=== PATIENT | male | born 1995 | race Two or more races ===

== ENCOUNTER 2024-06-17 23:32 | Emergency (ER) | payer MEDICAID, SELFPAY ==
[2024-06-17 23:32] VITALS: BMI 18.9
[2024-06-17 23:44] VITALS: BP 122/78; PULSE 91; RESP 18; TEMP 36.6; O2SAT 98
--- NOTE | 2024-06-17 23:50 | XR_ITS ---
EXAMINATION: Ankle, right 3 views . Technique: Ankle AP, oblique, lateral 3 views Date and time of exam: June 18, 2024 0001 hrs. Indications: Ankle pain today. Findings: No acute fracture BB density projects at the posterior cortex distal tibial shaft No ankle dislocation Impression: No acute fracture Positive for opaque foreign body
--- NOTE | 2024-06-17 23:50 | XR_ITS ---
Examination: Foot, right, 3 views Technique: AP, oblique, lateral views foot, 3 views Date and time of exam: June 18, 2024 0001 hrs. Indications: Onset foot pain today Findings: No acute fracture No dislocation No cortical bone obstruction Impression: No acute fracture
--- NOTE | 2024-06-17 23:50 | XR_ITS ---
Examination: PA chest single view Technique: Upright PA chest single view Exam date and time: June 18, 2024 1209 hrs. Indications: Shortness of breath today. Findings: Normal heart size Lungs are clear. The osseous structures are intact Impression: No active disease
[2024-06-18] MEDS: predniSONE 20 MG TABLET 60 MG PO (00:14)
--- NOTE | 2024-06-18 00:35 | EDNOTE_ITS ---
Upper Respiratory Inf. RME/HPI General Chief Complaint: Flu Like Symptoms Stated Complaint: FLU LIKE SYMPTOMS Time Seen by Provider: 06/17/24 23:40 Arrival date/time: 06/17/24 23:32 RME / HPI RME / HPI Narrative: This section includes all my notes and documentations, including HPI, PE, and ED course. Nilo Minaya MD HPI: 28-year-old male with asthma here with a couple week history of worsening cough, productive cough, purulent sputum, and dyspnea. And he injured his right ankle about 2 weeks ago. He landed awkwardly when jumping a fence. He reports pain and swelling. No other complaints. ROS: All negative except as documented in HPI. Physical Exam: General: Alert and oriented. No acute distress when remaining still. Eyes: Conjunctivae and lids clear. ENT: No nasal congestion. Pharynx normal. TM normal bilaterally. Neck: Supple. Heart: RRR. Lungs: No respiratory distress. Good air movement with rhonchi. Skin: Warm and dry. Neuro: Alert and oriented X 3. Right Ankle: No significant bony tenderness or edema or limited range of motion. Right Foot: No tenderness. I reviewed all diagnostic test results. My interpretation of the chest x-ray is increased bronchial markings. My interpretation of the right ankle/foot x-rays is no acute fracture. COVID/influenza negative. At this point, diagnoses include bronchitis. Treatment here included prednisone and Zithromax and DuoNeb. Significant improvement noted. Recommended more outpatient care. Based on my best medical judgment, made decision no further evaluation or treatment indicated at this time. Patient understands and agrees to the discharge instructions customized and printed, see below. Discharge instructions from Dr. Minaya: --No physical exertion for 3 days to help rest the lungs. ?-No smoking or exposure to smoking or pets or dust or cold or humidity. --Zithromax to kill the germs causing the bronchitis. --Prednisone to help decrease the swelling in the airways. --Albuterol 2 puffs every 4-6 hours for 3 days to help keep the airways open. Then as needed for cough or shortness of breath. --See a private doctor on 06/19/2024 for recheck and further care. Ask to review all test results and official radiology reports, to make sure you receive all necessary follow-ups and monitoring. For your right ankle pain, ask for more imaging studies not available here in the ER (such as MRI) to make sure there is no serious underlying condition. --Seek immediate medical care with worsening or with any concerns. Nilo Minaya MD Related Data Previous Rx's ?Medication ?Instructions ?Recorded albuterol sulfate 90 mcg/actuation 2 inh inhalation QID PRN shortness 06/18/24 aerosol inhaler of breath or wheezing #8.5 grams azithromycin 500 mg tablet 500 mg PO QDAY 3 days #3 tabs 06/18/24 (Zithromax TRI-MANJULA) prednisone 20 mg tablet 40 mg PO DAILY 3 days #6 tabs 06/18/24 Allergies Allergy/AdvReac Type Severity Reaction Status Date / Time No Known Allergies Allergy Verified 06/17/24 23:34 Course Quality Measures none Orders Category Date Time Status Bedside COVID-19 Antigen Test NOW Care 06/17/24 23:50 Active Bedside Influenza A&B Antigen Test NOW Care 06/17/24 23:50 Active XR ankle comp RT min 3V Stat Exams 06/17/24 23:50 Taken XR chest 1V portable Stat Exams 06/17/24 23:50 Taken XR foot comp RT min 3V Stat Exams 06/17/24 23:50 Taken Albuterol/Ipratr Rt Leonarda [Duoneb Rt Leonarda] Med 06/18/24 00:06 Discontinued 3 ml INH X1 ONE Azithromycin Po [Zithromax PO] Med 06/18/24 00:31 Discontinued 500 mg PO X1 ONE predniSONE Med 06/18/24 00:06 Discontinued 60 mg PO X1 ONE Vital Signs Vital signs: Vital Signs Temperature 98 F 06/17/24 23:44 Pulse Rate 91 06/17/24 23:44 Respiratory Rate 18 06/17/24 23:44 Blood Pressure 122/78 06/17/24 23:44 Pulse Oximetry (%) 98 06/17/24 23:44 Oxygen Delivery Method Room Air 06/17/24 23:44 Upper Respiratory Infection Patient data External records reviewed:: None Clinical information provided by:: patient Social determinants that could affect healthcare access:: none Patient has the following chronic illnesses:: Asthma How is presenting disease/condition affected by chronic disease/condition?: exacerbated by Evaluation data The following diagnostics were reviewed and interpreted by me:: lab results and radiology exam(s) Lab and/or radiology exams considered but not ordered:: None Interpretation Summary: Bronchitis Medications / Prescriptions Medications or Prescriptions considered but not ordered:: None Medication administrations:: Medication Administration History Discontinued Medications Albuterol/Ipratropium (Albuterol/Ipratropium (Duoneb) Rt Leonarda 3 Ml Nebu) 3 ml INH X1 ONE Stop: 06/18/24 00:07 Azithromycin (Azithromycin 250 Mg Tablet) 500 mg PO X1 ONE Stop: 06/18/24 00:32 Prednisone (Prednisone 20 Mg Tablet) 60 mg PO X1 ONE Stop: 06/18/24 00:07 Last Admin: 06/18/24 00:14 Dose: 60 mg Documented By: LEAH Prednisone and Zithromax and DuoNeb Consultations Consultation(s) initiated? (list below): No Diagnosis Upper Respiratory Differential Diagnosis: upper respiratory infection, viral infection, bronchitis, influenza and other (Croup, pneumonia) Most likely diagnosis given after review of the tests above:: Bronchitis Admission Indicated Admission indicated?: not indicated Explain why admission is indicated or not indicated:: Admission criteria not met Admission Request Was there a request for admission?: No Disposition Plan Disposition Plan: Discharge Discharge Attestation Discharge Attestation: The patient and all family members were given an opportunity to ask questions and understood the discharge instructions. Discharge instructions specifically effects, indications for sooner follow up or return to the emergency department, and the expected course of current diagnosis. Patient condition: Stable Discharge Plan Plan Patient Disposition: HOME (Self Care) Prescriptions/Referrals Prescriptions/Med Rec: New prednisone 20 mg tablet 40 mg PO DAILY 3 Days Qty: 6 0RF Taper: Prednisone Taper 20 mg DAILY for 2 Days and 0 Hour 10 mg DAILY for 2 Days and 0 Hour 5 mg DAILY for 7 Days and 0 Hour albuterol sulfate 90 mcg/actuation HFA aerosol inhaler 2 inh inhalation QID PRN (Reason: shortness of breath or wheezing) Qty: 8.5 0RF azithromycin [Zithromax TRI-MANJULA] 500 mg tablet 500 mg PO QDAY 3 Days Qty: 3 0RF Referrals: Artemio Sharma MD [Primary Care Provider] - In 1 week Problem List Clinical Impression: Bronchitis Patient/Caregiver Discharge Instructions Discharge Activity: activity as tolerated Education Materials: ED Bronchitis with Wheezing (Adult) Additional Instructions: Discharge instructions from Dr. Minaya: --No physical exertion for 3 days to help rest the lungs. ?-No smoking or exposure to smoking or pets or dust or cold or humidity. --Zithromax to kill the germs causing the bronchitis. --Prednisone to help decrease the swelling in the airways. --Albuterol 2 puffs every 4-6 hours for 3 days to help keep the airways open. Then as needed for cough or shortness of breath. --See a private doctor on 06/19/2024 for recheck and further care. Ask to review all test results and official radiology reports, to make sure you receive all necessary follow-ups and monitoring. For your right ankle pain, ask for more imaging studies not available here in the ER (such as MRI) to make sure there is no serious underlying condition. --Seek immediate medical care with worsening or with any concerns. Print Language: Serbian Stand Alone Forms: [employer] Award Info., Patient Portal Info Letter
[2024-06-18] MEDS: AZITHROMYCIN 250 MG TABLET 500 MG PO (00:40)
[2024-06-18] MEDS: ALBUTEROL/IPRATROPIUM (Duoneb) RT SOL 3 ML NEBU INH (01:20)
--- NOTE | 2024-06-18 01:24 | PC.RT ---
Pt refused duoneb tx. Seems confused and unable to understand what is going on.
--- NOTE | 2024-06-18 01:30 | PC.NURSE ---
Pt refused breathing treatment.
== END 2024-06-18 01:30 | disposition home or self-care (01) ==
PROVIDERS: Emergency Provider Emergency Medicine; PCP Family Medicine
DX: J40 Bronchitis, not specified as acute or chronic (principal); S99.911A Unspecified injury of right ankle, initial encounter; M79.671 Pain in right foot; X58.XXXA Exposure to other specified factors, initial encounter; Y93.39 Activity, other involving climbing, rappelling and jumping off
CPT/HCPCS: 71045; 73610; 73630; 99283; A9270; J7512

== ENCOUNTER 2024-06-30 10:58 | Emergency (ER) | payer MEDICAID, SELFPAY ==
--- NOTE | 2024-06-30 12:48 | PC.NURSE ---
PT NOT FOUND IN OR OUTSIDE OF ED X3. PT ELOPED.
== END 2024-06-30 12:48 | disposition left against medical advice (07) ==
LOC: SERX 11:51
PROVIDERS: Emergency Provider Emergency Medicine
DX: Z53.21 Procedure and treatment not carried out due to patient leaving prior to being seen by health care provider (principal)